=== PATIENT | male | born 1955 | race African-American/Black ===

== ENCOUNTER 2019-03-07 08:15 | Emergency (ER) | payer OTHER ==
[~2019-03-07] VITALS: Ht 185.4 cm; Wt 74.0 kg
[~2019-03-07 08:15] MED LIST: AMLO10TA80 PO; ASPIRIN PO; HYDR50CA PO; LOSA25TA26 PO; METFORMIN PO; PIOG30TA10 PO; SIMV20TA6 PO; SITA100T11 PO
[2019-03-07] MEDS ORDERED: FLUORESCEIN SODIUM 1MG/STRIP OP ONE (08:45)
[2019-03-07] MEDS ORDERED: TETRACAINE 0.5% OPHTH DROPS 4ML OP ONE (08:45)
[2019-03-07] MEDS ORDERED: TETANUS, DIPHTHERIA, PERTUSSIS VAC/PF 0.5ML (>7YR OLD) IM ONE (09:00)
[2019-03-07] MEDS ORDERED: ERYTHROMYCIN BASE 0.5% OPHTH OINT 3.5GM RIGHTEYE ONE (09:15)
[2019-03-07 09:35] VITALS: BP 165/71
== END 2019-03-07 09:35 | disposition home or self-care (01) ==
LOC: ER 08:15
DX: S05.01XA Injury of conjunctiva and corneal abrasion without foreign body, right eye, initial encounter (principal); X58.XXXA Exposure to other specified factors, initial encounter; Y93.89 Activity, other specified; Y92.89 Other specified places as the place of occurrence of the external cause; Y99.8 Other external cause status; J44.9 Chronic obstructive pulmonary disease, unspecified; E11.9 Type 2 diabetes mellitus without complications; E78.00 Pure hypercholesterolemia, unspecified; I10 Essential (primary) hypertension; Z86.73 Personal history of transient ischemic attack (TIA), and cerebral infarction without residual deficits; Z98.890 Other specified postprocedural states; Z79.899 Other long term (current) drug therapy
CPT/HCPCS: 90471; 90715; 99284

== ENCOUNTER 2022-09-30 06:30 | Emergency (ER) | payer MEDICARE, OTHER ==
[~2022-09-30] VITALS: Ht 185.4 cm; Wt 64.7 kg
[~2022-09-30 06:30] MED LIST changes: +SIMV-43 PO; -SIMV20TA6 PO
[2022-09-30] MEDS ORDERED: IBUPROFEN 600MG TABLET PO ONE (08:30)
[2022-09-30 09:18] VITALS: BP 137/75
== END 2022-09-30 09:20 | disposition home or self-care (01) ==
LOC: ER 06:30
DX: M70.22 Olecranon bursitis, left elbow (principal); J44.9 Chronic obstructive pulmonary disease, unspecified; E11.9 Type 2 diabetes mellitus without complications; E78.00 Pure hypercholesterolemia, unspecified; I10 Essential (primary) hypertension; Z79.82 Long term (current) use of aspirin; Z86.73 Personal history of transient ischemic attack (TIA), and cerebral infarction without residual deficits
CPT/HCPCS: 73070; 99283

== ENCOUNTER 2023-12-19 09:22 | Emergency (ER) | payer MEDICARE, MEDICAID ==
[~2023-12-19] VITALS: Ht 185.4 cm; Wt 65.0 kg
[2023-12-19 09:49] VITALS: BP 145/82; PULSE 76; RESP 12; TEMP 98.3; O2SAT 100
[2023-12-19 10:09] LABS: BASOPHILS % 0.1 % (0.0-2.0); EOSINOPHILS % 0.6 % (0.0-5.0); HEMATOCRIT. 39.4 % (42.0-52.0); HEMOGLOBIN. 13.7 g/dL (14.0-18.0); LYMPHOCYTES % 35.4 % (20.0-50.0); MEAN CORPUSCULAR HEMOGLOBIN 31.6 pg (28.0-32.0); MEAN CORPUSCULAR HGB CONC 34.9 g/dL (31.0-37.0); MEAN CORPUSCULAR VOLUME 90.7 fL (80.0-94.0); MEAN PLATELET VOLUME 8.1 fl (7.4-10.4); MONOCYTES % 7.9 % (2.0-8.0); PLATELET 269 x1000/uL (130-400); RED BLOOD CELL COUNT 4.34 mill/uL (4.7-6.1); RED CELL DISTRIBUTION WIDTH 13.4 % (11.6-14.6); WHITE BLOOD COUNT 5.5 x1000/uL (4.5-11.0)
[2023-12-19 10:29] LABS: CALCIUM 9.5 mg/dL (8.7-10.4); CARBON DIOXIDE 28 mEq/L (21-32); CHLORIDE 104 mEq/L (98-107); POTASSIUM 3.9 mEq/L (3.5-5.1); SODIUM 138 mEq/L (136-145)
[2023-12-19 10:34] LABS: CREATININE 1.2 mg/dL (0.6-1.3); GLUCOSE 215 mg/dL (70-105)
[2023-12-19 10:35] LABS: UREA NITROGEN BLOOD 11 mg/dL (9-23)
[2023-12-19 10:43] LABS: TROPONIN I HIGH SENSITIVITY < 4 ng/L (3.0-53)
[2023-12-19 11:16] LABS: CHLORIDE 106 mEq/L (98-107); POTASSIUM 4.1 mEq/L (3.5-5.1); SODIUM 139 mEq/L (136-145)
[2023-12-19 11:17] LABS: CALCIUM 9.6 mg/dL (8.7-10.4); CARBON DIOXIDE 27 mEq/L (21-32)
[2023-12-19 11:22] LABS: CREATININE 1.1 mg/dL (0.6-1.3); GLUCOSE 209 mg/dL (70-105); UREA NITROGEN BLOOD 14 mg/dL (9-23)
[2023-12-19 11:24] LABS: ALANINE AMINOTRANSFERASE 14 IU/L (10-49); ALBUMIN 4.6 g/dL (3.2-4.8); ASPARTATE AMINOTRANSFERASE 18 IU/L (<34); BILIRUBIN TOTAL 1.3 mg/dL (0.1-1.0); PROTEIN TOTAL 6.9 g/dL (6.0-8.3)
== END 2023-12-19 12:44 | disposition left against medical advice (07) ==
LOC: ER 09:22
DX: R06.02 Shortness of breath (principal); E11.9 Type 2 diabetes mellitus without complications; F12.10 Cannabis abuse, uncomplicated; E78.00 Pure hypercholesterolemia, unspecified; Z98.890 Other specified postprocedural states; Z53.21 Procedure and treatment not carried out due to patient leaving prior to being seen by health care provider; Z79.899 Other long term (current) drug therapy; Z86.73 Personal history of transient ischemic attack (TIA), and cerebral infarction without residual deficits
CPT/HCPCS: 36415; 71045; 80048; 80053; 83880; 84484; 85025; 85379; 93005; 99285